=== PATIENT | male | born 1985 | race Caucasian/White ===

== ENCOUNTER 2018-05-05 21:22 | Emergency (ER) | payer OTHER ==
[~2018-05-05] VITALS: Ht 170.2 cm; Wt 84.8 kg
[2018-05-05 21:41] VITALS: BP 135/72; Ht 170.2 cm; Wt 84.8 kg
== END 2018-05-05 22:19 | disposition other institution (70) ==
LOC: ED 21:22
DX: Z02.89 Encounter for other administrative examinations (principal)